=== PATIENT | male | born 1980 | race Caucasian/White ===

== ENCOUNTER 2019-09-11 00:28 | Emergency (ER) | payer SELFPAY ==
[~2019-09-11] VITALS: Ht 175.3 cm; Wt 81.6 kg
[2019-09-11 00:29] VITALS: Ht 175.3 cm; Wt 81.6 kg
[2019-09-11 01:21] VITALS: BP 124/78
== END 2019-09-11 01:21 | disposition home or self-care (01) ==
LOC: ED 00:28
DX: R51 Headache (principal); Z20.828 Contact with and (suspected) exposure to other viral communicable diseases
CPT/HCPCS: U0003-CS